=== PATIENT | female | born 1945 | race Two or more races ===

== ENCOUNTER 2018-05-24 20:05 | Inpatient (IN) | payer MEDICARE, OTHER ==
[~2018-05-24] VITALS: Ht 162.6 cm; Wt 97.1 kg
[2018-05-24 21:27] LABS: Alanine Aminotransferase 27 U/L (13-56); Albumin 3.6 g/dL (3.4-5.0); Anion Gap 3 (5-15); Aspartate Aminotransferase 23 U/L (15-37); Blood Urea Nitrogen 37 mg/dL (7-18); Calcium 8.3 mg/dL (8.5-10.1); Carbon Dioxide 31 mmol/L (21-32); Chloride 106 mmol/L (98-107); Glucose 145 mg/dL (74-106); Potassium 5.2 mmol/L (3.5-5.1); Sodium 140 mmol/L (136-145)
[2018-05-24 21:30] LABS: Basophils # (auto) 0 uL; Basophils % (auto) 0.4 % (0.0-2.0); Eosinophils # (auto) 0.1 uL; Eosinophils % (auto) 1.1 % (0.0-7.0); Hematocrit 44.1 % (36.0-46.0); Hemoglobin 14.7 g/dL (12.2-16.2); INR 1.41 (0.9-1.15); Lymphocytes # (auto) 2.1 uL; Lymphocytes % (auto) 42.3 % (10.0-50.0); Mean Corpuscular Hemoglobin 31.6 pg (28.0-32.0); Mean Corpuscular Hgb Conc. 33.4 g/dL (32.0-36.0); Mean Corpuscular Volume 94.5 fL (80.0-100.0); Monocytes # (auto) 0.6 uL; Monocytes % (auto) 11.5 % (0.0-12.0); Neutrophils # (auto) 2.2 uL; Neutrophils % (auto) 44.7 % (37.0-80.0); Nucleated Red Blood Cells % 0.2 %; Partial Thromboplastin Time 47.1 sec (23.78-33.04); Platelet Count (auto) 167 10^3/uL (140-450); Prothrombin Time 14.8 sec (9.27-12.13); Red Blood Cells 4.67 10^6/uL (4.0-5.20); Red Cell Distribution Width 15.1 % (11.8-14.3); White Blood Cell 4.8 10^3/uL (4.4-10.8)
[2018-05-24 21:32] LABS: Alkaline Phosphatase 48 U/L (45-117); BUN/Creatinine Ratio 24.8; Bilirubin, Total 0.3 mg/dL (0.2-1.0); GFR African American 44 mL/min; GFR Non-African American 36 mL/min; Total Protein 7.7 g/dL (6.4-8.2)
[2018-05-25] VITALS (8 sets, daily range): BP systolic 111–152; BP diastolic 65–76
[2018-05-25] MEDS ORDERED: FUROSEMIDE 20 MG/2 ML VIAL IV ONE (02:15)
[2018-05-25] MEDS ORDERED: ONDANSETRON HCL 4 MG/2 ML VIAL IV PRN (02:30)
[2018-05-25] MEDS ORDERED: NITROGLYCERIN 0.4 MG SL TAB SL PRN (02:30)
[2018-05-25] MEDS ORDERED: ACETAMINOPHEN 325 MG TAB PO PRN (02:30)
[2018-05-25] MEDS ORDERED: MORPHINE SULF INJ 2 MG/ML SYRINGE 1ML IV PRN (02:30)
[2018-05-25] MEDS ORDERED: DEXTROSE (50%) 50ML SYRG IV PRN (02:30)
--- NOTE | 2018-05-25 04:15 | NUR ---
Telemetry admit from ER [place] admitted to Telemetry unit after SBAR received. Patient oriented to Alisha Silverio, primary RN, unit, room, bed, and unit policies regarding patient care and visiting hours. Patient now on continuous telemetry monitoring, tele box # 19 and telemetry reading on arrival to unit is 62 . Patient placed on bedside oxygen, weighed by bedscale and encouraged to call if they need something. All questions and concerns addressed, patient oriented to herself, arousable. Note: pt.on bipap.
[2018-05-25 04:21] LABS: Urine Bacteria MANY /hpf (None Seen); Urine Blood 1+ /uL (Negative); Urine Hyaline Cast MOD /lpf (0 - 2); Urine Mucus FEW (None Seen); Urine Specific Gravity 1.016 (1.001-1.035); Urine WBC 1369 /hpf (0 - 5); Urine WBC Clumps PRESENT /hpf (None Seen)
[2018-05-25] MEDS ORDERED: CHOL20007 OR (04:36)
[2018-05-25] MEDS ORDERED: DABI75CA3 PO (04:36)
[2018-05-25] MEDS ORDERED: MULTTAB99 PO (04:36)
[2018-05-25] MEDS ORDERED: METO-158 PO (04:36)
[2018-05-25] MEDS ORDERED: IPRIH INH (04:36)
[2018-05-25] MEDS ORDERED: MOMLQ PO (04:36)
[2018-05-25] MEDS ORDERED: LEVO100T8 PO (04:36)
[2018-05-25] MEDS ORDERED: CELE100C82 PO (04:36)
[2018-05-25] MEDS ORDERED: SENN-58 PO (04:36)
[2018-05-25] MEDS ORDERED: FENO134C PO (04:36)
[2018-05-25] MEDS ORDERED: BUME1TAB PO (04:36)
[2018-05-25] MEDS ORDERED: INSUINJ48 SC ×2 (04:36)
[2018-05-25] MEDS ORDERED: ACET-1156 PO (04:36)
[2018-05-25] MEDS ORDERED: HYDR-4902 PO (04:36)
[2018-05-25] MEDS ORDERED: POTA20TA53 PO ×2 (04:36)
[2018-05-25] MEDS ORDERED: SIMV-8 PO (04:36)
[2018-05-25] MEDS: InsuLIN REG 1unit/0.01ml Soln (100units/ml) SC SCH ×3 (05:47→17:29)
[2018-05-25] MEDS: ACCU-CHEK COMFORT CURVE STRIP VI SCH ×3 (05:48→17:29)
[2018-05-25] MEDS: LEVOTHYROXINE SODIUM 100 MCG TAB PO SCH (06:00)
[2018-05-25] MEDS ORDERED: FUROSEMIDE 20 MG/2 ML VIAL IV SCH (06:00)
[2018-05-25] MEDS: IPRATROPIUM BROM 0.5 MG/2.5ML INH SOL NEB SCH ×5 (07:00→21:59)
--- NOTE | 2018-05-25 07:00 | NUR ---
PT. REMOVE MASK HERSELF THIS AM., REFUSING TO WEAR BIPAP. NOC SHIFT RN. STATES SHE PLACED PT. ON O2 AT 3LPM NC. ON ARRIVAL PT WAS SATURATING 99% ON 3LPM NC. 02 DECREASED TO 2LPM. PT. WAS ALERT SITTING UP IN A CHAIR WHILE CLEANER WINDOW CHANGED HER BEDDING. NO RESP. DISTRESS NOTED. AG OBTAINED AT THIS TIME.
--- NOTE | 2018-05-25 08:05 | NUR ---
PT SITTING IN CHAIR EATING BREAKFAST. NO S/S OF ACUTE DISTRESS NOTED. SON AT BEDSIDE. INSTRUCTED TO CALL FOR ASSISTANCE WHEN NEEDED. CALL LIGHT WITHIN EASY REACH, WILL CONTINUE CARE.
--- NOTE | 2018-05-25 08:55 | NUR ---
DR. TAVAREZ AT BEDSIDE. NEW ORDER CHANGE LASIX IV TO 40MG BID, PHYSICAL THERAPY. WILL CARRY OUT ORDER.
--- NOTE | 2018-05-25 09:35 | NUR ---
Pradaxa is not available, notify pharmacy.
[2018-05-25] MEDS: cefTRIAXone 1GM/50ML D5W 50 ML IV SCH (10:21)
[2018-05-25] MEDS: PANTOPRAZOLE 40 MG TAB PO SCH (10:21)
[2018-05-25] MEDS: METOPROLOL SUCCINATE XL 50 MG TAB PO SCH (10:22)
[2018-05-25] MEDS: ALBUTEROL SULF 2.5 MG/0.5ML(0.5%) NEB SOLN NEB PRN ×4 (10:51→21:59)
--- NOTE | 2018-05-25 11:03 | NUR ---
PLACED PT. BACK ON BIPAP WITH PRIOR SETTING OF 18/6,FIO2 35%. PT. STATES SHE WANTS TO SLEEP. DAUGHTER IN THE ROOM AT BEDSIDE, STATES HER MOM SEEMS A LITTLE OFF, NOT MAKING SENSE. PT. KEPT MASK ON MAYBE 5MIN AND REFUSED TO WEAR BIPAP ANYMORE. DAUGHTER EXPLAINED TO HER MOM THAT IT IS VERY IMPORTANT THAT SHE WEAR IT, BUT SHE STILL REFUSED.
[2018-05-25] MEDS: DABIGATRAN 75 MG CAP PO SCH ×2 (11:30→22:00)
--- NOTE | 2018-05-25 15:46 | NUR ---
Pt is an alert but lethargic /confused female. Pt has been residing at [facility] prior to hospitalization and will be returning post discharge. Pt has a son and daughter, Nery Seals, that is supportive and involved with pt. Pt will be transported back to [facility] when discharged with transportation arrangements by facility. Addendum: 05/25/18 at 1549 by RONNY FOX Amended: Links added.
--- NOTE | 2018-05-25 17:10 | NUR ---
DR. CARREON AT BEDSIDE FOR CARDIOLOGY CONSULT.
--- NOTE | 2018-05-25 17:54 | NUR ---
PT C/O BACK PAIN. DR. TAVAREZ NOTIFIED, NEW ORDER NORCO 5-325 MG PO Q 6H PRN. ORDER READ BACK AND VERIFIED WILL CARRY OUT ORDER.
[2018-05-25] MEDS: FUROSEMIDE 20 MG/2 ML VIAL IV SCH (18:27)
--- NOTE | 2018-05-25 19:10 | NUR ---
Opening Shift Note Assumed care of patient from day shift RN Van. Patient is A/O to self with no S/S of distress/SOB or pain. Instructed on POC and to call for assist PRN, will continue to monitor for changes Q1hr and PRN.
--- NOTE | 2018-05-25 19:20 | NUR ---
CARE ENDORSED TO VIRIDIANA JOSEPH.
--- NOTE | 2018-05-25 20:40 | NUR ---
PATIENT PULLED OUT IV
[2018-05-25] MEDS: TEMAZEPAM 15 MG CAP PO PRN (22:36)
[2018-05-26] MEDS: IPRATROPIUM BROM 0.5 MG/2.5ML INH SOL NEB SCH ×7 (02:00→22:00)
--- NOTE | 2018-05-26 03:05 | NUR ---
IV insertion IV ACCESS OBTAINED via clean sterile technique by inserting 22 gauge catheter at after 2 attempt(s). IV secured properly. No trauma to site. Patient tolerated well.
[2018-05-26] MEDS: ALBUTEROL SULF 2.5 MG/0.5ML(0.5%) NEB SOLN NEB PRN ×4 (03:41→14:21)
[2018-05-26 05:00] VITALS: BP 145/68
[2018-05-26] MEDS: InsuLIN REG 1unit/0.01ml Soln (100units/ml) SC SCH ×4 (05:23→18:12)
[2018-05-26] MEDS: ACCU-CHEK COMFORT CURVE STRIP VI SCH ×4 (05:23→18:12)
[2018-05-26] MEDS: FUROSEMIDE 20 MG/2 ML VIAL IV SCH ×2 (06:49→18:11)
[2018-05-26] MEDS: LEVOTHYROXINE SODIUM 100 MCG TAB PO SCH (06:49)
[2018-05-26 07:03] LABS: Basophils # (auto) 0 uL; Basophils % (auto) 0.5 % (0.0-2.0); Eosinophils # (auto) 0 uL; Eosinophils % (auto) 0.9 % (0.0-7.0); Hematocrit 40.7 % (36.0-46.0); Hemoglobin 13.3 g/dL (12.2-16.2); Lymphocytes # (auto) 1.3 uL; Lymphocytes % (auto) 32.2 % (10.0-50.0); Mean Corpuscular Hgb Conc. 32.8 g/dL (32.0-36.0); Mean Corpuscular Volume 94.4 fL (80.0-100.0); Monocytes # (auto) 0.4 uL; Monocytes % (auto) 10.3 % (0.0-12.0); Neutrophils # (auto) 2.3 uL; Neutrophils % (auto) 56.1 % (37.0-80.0); Nucleated Red Blood Cells % 0.1 %; Platelet Count (auto) 166 10^3/uL (140-450); Red Blood Cells 4.31 10^6/uL (4.0-5.20); Red Cell Distribution Width 15.6 % (11.8-14.3); White Blood Cell 4.2 10^3/uL (4.4-10.8)
--- NOTE | 2018-05-26 07:26 | NUR ---
CLOSING NOTE CARE TRANSFERRED TO DAY SHIFT OPAL BRUNNER
[2018-05-26 07:29] LABS: BUN/Creatinine Ratio 27.5; Calcium 8.6 mg/dL (8.5-10.1); Potassium 4.1 mmol/L (3.5-5.1)
[2018-05-26 09:00] VITALS: BP 146/69
--- NOTE | 2018-05-26 09:00 | NUR ---
IV Removal/ Insertion IV to right forearm DC'd with clean sterile technique, catheter fully intact. Pressure dressing applied to site. Patient tolerated well. IV insertion IV access obtained, via clean sterile technique by inserting 22 gauge catheter at the left forearm after 1 attempt. IV secured properly. No trauma to site. Patient tolerated well.
--- NOTE | 2018-05-26 09:06 | NUR ---
FAMILY CALLED P[employer]WORD VERIFIED, UPDATED ON PATIENT STATUS. ALL QUESTIONS AND CONCERNS ADDRESSED.
--- NOTE | 2018-05-26 09:41 | NUR ---
PATIENT PLACED ON CONTACT PRECAUTIONS PER MICROBIOLOGY, PATIENT POSITIVE FOR MRSA. WILL CONTINUE DROPLET PRECAUTIONS. WILL CONTINUE CARE.
[2018-05-26] MEDS: DABIGATRAN 75 MG CAP PO SCH ×2 (09:46→21:24)
[2018-05-26] MEDS: cefTRIAXone 1GM/50ML D5W 50 ML IV SCH (09:46)
[2018-05-26] MEDS: PANTOPRAZOLE 40 MG TAB PO SCH (09:47)
[2018-05-26] MEDS: METOPROLOL SUCCINATE XL 50 MG TAB PO SCH (09:47)
--- NOTE | 2018-05-26 11:00 | NUR ---
PLACE PT ON BIPAP SETTINGS MENTIONED ABOVE, PT HAS INCREASED WOB WITHOUT POST MED NEB TREATMENT IMPROVEMENT. PT WEARING MEDIUM SIZE MASK AND ADJUSTED FOR COMFORT AND MINIMAL LEAK NOSE CUSION IN PLACE. NO SKIN BREAKDOWN NOTED NO REDNESS NOTED. DAUGHTER AT BEDSIDE. BS AUDIBLE EXP WHEEZES. ALARMS ON BIPAP ON AND AUDIBLE. BIPAP PLUGGED IN RED OUTLET. PULSE OXIMETER AT BEDSIDE. WILL CONTINUE TO MONITOR PT.
--- NOTE | 2018-05-26 11:03 | NUR ---
PATIENT DAUGHTER AT BEDSIDE. REFUSING TO WEAR PPE INDICATED. EDUCATED PATIENT FAMILY ON IMPORTANCE OF COMPLIANCE WITH PPE TO STOP THE SPREAD OF INFECTION. DAUGHTER VERBALIZED UNDERSTANDING BUT REFUSING TO WEAR GOWN AT THIS TIME. DAUGHTER STATING HER FATHER WAS POSITIVE FOR MRSA LAST YEAR SO SHE KNOWS ABOUT THE INFECTION. FAMILY REQUESTING TO SPEAK WITH CHARGE NURSE, CHARGE NURSE MADE AWARE. WILL CONTINUE CARE.
[2018-05-26] MEDS: HYDROcodone-ACET 5/325MG TAB PO PRN (11:19)
--- NOTE | 2018-05-26 12:03 | NUR ---
Patient removing Bipap mask. Educated patient on importance of wearing Bipap. Patient unable to comprehend. Patient placed back on Bipap at this time. Family member at bedside. Will continue to monitor.
--- NOTE | 2018-05-26 12:07 | NUR ---
Paged MD Minaya. Patient family requesting medication due to patient being anxious. No new orders. Will continue to monitor.
--- NOTE | 2018-05-26 12:31 | NUR ---
Pt reports no c/o pain and or discomfort. Pt worked on bilat LE strengthening at the edge of the bed and was also able to complete x 10 reps of T Y and I exercises. Pt was able to stand up at the edge of the bed using a FWW for support and was able to take 5 side steps towards her R side so she could get higher up in bed. Pt is wheezing and has a difficult time breathing. Addendum: 05/26/18 at 1234 by Juany Fontaine PT Amended: Links added.
[2018-05-26 13:00] VITALS: BP 152/70
--- NOTE | 2018-05-26 13:15 | NUR ---
PT REMOVED FROM BIPAP AT THIS TIME FOR LUNCH. DAUGHTER AT BEDSIDE. PLACED PT ON 2L NC WITH SPO2 93%, HR 89. NO DISTRESS NOTED. WILL CONTINUE TO MONITOR PT.
--- NOTE | 2018-05-26 16:00 | NUR ---
PATIENT ROUNDS- NO S/S OF DISTRESS FAMILY AT BEDSIDE. PATIENT RESTING COMFORTABLY. BED LOW LOCK POSITION WITH CALL LIGHT IN REACH, BED ALARM ON. RESPIRATIONS EVEN AND UNLABORED. NO S/S OF DISTRESS, WILL CONTINUE CARE.
[2018-05-26 17:00] VITALS: BP 117/53
[2018-05-26] MEDS ORDERED: ALBUTEROL SULF 2.5 MG/0.5ML(0.5%) NEB SOLN NEB PRN (18:00)
[2018-05-26] MEDS ORDERED: AZITHROMYCIN 500MG/ 250ML 250 ML IV ONE (18:00)
[2018-05-26] MEDS ORDERED: methylPREDNISolone SOD SUCC 125 MG/2 ML VL IV ONE (18:00)
--- NOTE | 2018-05-26 18:08 | NUR ---
MD TAVAREZ AT BEDSIDE FAMILY QUESTIONS AND CONCERNS ADDRESSED. NEW ORDERS GIVEN. SEE ORDERS. CONTINUE CARE. Addendum: 05/26/18 at 1811 by KANNAN CHI RN DECLINED PATIENT FAMILY REQUEST FOR ANXIETY MEDICATION. PATIENT FAMILY VERBALIZED UNDERSTANDING.
[2018-05-26] MEDS: ALBUTEROL SULF 2.5 MG/0.5ML(0.5%) NEB SOLN NEB SCH (18:33)
--- NOTE | 2018-05-26 18:33 | NUR ---
Respiratory note: PT REFUSED MED NEB TX AT THIS TIME. PT PRESENTING NO RESPIRATORY DISTRESS. SITTER AT BEDSIDE. HR 83, SPO2 95% ON 2L NC, RR 16, BS CLEAR/DIMINISHED. WILL CONTINUE TO MONITOR.
--- NOTE | 2018-05-26 19:45 | NUR ---
DR. FRIAS At bedside MD informed for Pt o2 levels to be between 88-92%, No sedatives to be given, CXR and ABG to be done in AM, Will continue to monitor pt.
--- NOTE | 2018-05-26 19:50 | NUR ---
INFORMED DR. FRIAS pt family would like to be contacted as per family request will continue to monitor pt.
--- NOTE | 2018-05-26 19:59 | NUR ---
PT ROUNDS Informed sitter at bedside for safety to please inform me if O2 goes below 87% or above 92%. will continue to monitor pt,
[2018-05-26] MEDS: methylPREDNISolone SOD SUCC 125 MG/2 ML VL IV SCH (21:25)
[2018-05-26] MEDS: OSELTAMIVIR 30 MG CAP PO SCH (21:25)
[2018-05-26 22:00] VITALS: BP 141/66
--- NOTE | 2018-05-26 22:15 | NUR ---
Respiratory note: PT REFUSED MED NEB TX AT THIS TIME AND REFUSED BIPAP FOR NOC. OPAL GIPSON SPOKE TO PT IN ICEL[place]IC AND PT STILL REFUSED MED NEB TX AND BIPAP. PT PRESENTING NO RESPIRATORY DISTRESS AT THIS TIME. PT REMAINS ON 1.5L NC, SITTER AT BEDSIDE. HR 60 SPO2 97% ON 1.5L NC, RR 16. WILL CONTINUE TO MONITOR.
--- NOTE | 2018-05-26 22:17 | NUR ---
RT AT BEDSIDE Spoke with PT, pt refused breathing tx and bipap, informed pt importance of receiving breathing tx and use of bipap. PT still refused, will continue to monitor pt.
[2018-05-27] MEDS: IPRATROPIUM BROM 0.5 MG/2.5ML INH SOL NEB SCH ×4 (02:17→19:22)
--- NOTE | 2018-05-27 04:30 | NUR ---
Respiratory note: PT PLACED ON BIPAP POST ABG RESULTS. PT FITTED WITH SIZE MEDIUM MASK. BS COARSE, PT NOT TOLERATING WELL, PULLING AT MASK, STATES SHE WANTS TO TAKE IT OFF, RN CALLED TO BEDSIDE TO TRANSLATE AND EXPLAIN TO PT WHY SHE NEEDS TO WEAR MASK, PT REFUSED AND WANTS MASK OFF AT THIS TIME. PT PLACED BACK ON NASAL CANNULA. NO RESPIRATORY DISTRESS NOTED, RN TO NOTIFY DR. TAVAREZ ABG RESULTS AND PT NOT BEING COMPLIANT WITH TREATMENT. WILL CONTINUE TO MONITOR.
[2018-05-27 05:00] VITALS: BP 128/59
--- NOTE | 2018-05-27 06:00 | NUR ---
INFORMED DR. MINAYA ABG Informed Dr. Minaya in regards to pt's ABG results, will continue to monitor pt.
[2018-05-27] MEDS: ACCU-CHEK COMFORT CURVE STRIP VI SCH ×5 (06:04→23:25)
[2018-05-27] MEDS: methylPREDNISolone SOD SUCC 125 MG/2 ML VL IV SCH ×3 (06:17→21:25)
[2018-05-27] MEDS: InsuLIN REG 1unit/0.01ml Soln (100units/ml) SC SCH ×5 (06:18→23:26)
[2018-05-27] MEDS: FUROSEMIDE 20 MG/2 ML VIAL IV SCH ×2 (06:18→18:20)
[2018-05-27] MEDS: LEVOTHYROXINE SODIUM 100 MCG TAB PO SCH (06:18)
[2018-05-27] MEDS: ALBUTEROL SULF 2.5 MG/0.5ML(0.5%) NEB SOLN NEB SCH ×3 (06:31→19:22)
--- NOTE | 2018-05-27 06:42 | NUR ---
Respiratory note: PT REFUSED MEDNEB. PT IS ON 0.5L NASAL CANNULA AT 94%. BREATH SOUNDS WERE DIMINISHED BILATERALLY. CARDIAC RATE-58 AND RESP RATE-18. PT IN NO DISTRESS AT THIS TIME.
--- NOTE | 2018-05-27 08:00 | NUR ---
PATIENT PULLED OUT IV ROUNDED ON PATIENT. FOUND PATIENT HOLDING IV CATHETER. CATHETER INTACT. PRESSURE DRESSING APPLIED. NO S/S OF DISTRESS.
--- NOTE | 2018-05-27 08:10 | NUR ---
IV insertion IV access obtained, via clean sterile technique by inserting 22 gauge catheter at right forearm after 3 attempts. IV secured properly. No trauma to site. Patient tolerated well.
[2018-05-27 09:00] VITALS: BP 154/55
[2018-05-27] MEDS: cefTRIAXone 1GM/50ML D5W 50 ML IV SCH (09:28)
[2018-05-27] MEDS: DABIGATRAN 75 MG CAP PO SCH ×2 (09:29→21:25)
[2018-05-27] MEDS: OSELTAMIVIR 30 MG CAP PO SCH ×2 (09:29→21:25)
[2018-05-27] MEDS: PANTOPRAZOLE 40 MG TAB PO SCH (09:29)
[2018-05-27] MEDS: METOPROLOL SUCCINATE XL 50 MG TAB PO SCH (09:31)
[2018-05-27] MEDS: AZITHROMYCIN 500MG/ 250ML 250 ML IV SCH (10:14)
--- NOTE | 2018-05-27 10:45 | NUR ---
FAMILY AT BEDSIDE. ALL QUESTIONS AND CONCERNS ADDRESSED.
[2018-05-27 13:00] VITALS: BP 123/58
[2018-05-27 17:00] VITALS: BP 129/52
--- NOTE | 2018-05-27 19:10 | NUR ---
CLOSING NOTE ENDORSED CARE TO FOOD AND NUTRITION PROFESSOR RN. BED IN LOW LOCK POSITION, CALL LIGHT IN REACH. BED ALARM ON. SITTER AT BEDSIDE. NO S/S OF DISTRESS.
--- NOTE | 2018-05-27 19:15 | NUR ---
Opening Shift Note Assumed care of patient, awake and alert. No S/S of distress/SOB or pain. Sitter at bedside for safety, Instructed on POC and to call for assist PRN, will continue to monitor for changes Q1hr and PRN. Bed locked and in lowest position, HOB elevated, call light within reach, will continue to monitor pt.
[2018-05-28] MEDS: ALBUTEROL SULF 2.5 MG/0.5ML(0.5%) NEB SOLN NEB SCH ×4 (01:44→18:58)
[2018-05-28] MEDS: IPRATROPIUM BROM 0.5 MG/2.5ML INH SOL NEB SCH ×4 (01:44→18:58)
[2018-05-28 05:00] VITALS: BP 145/67
[2018-05-28] MEDS: ACCU-CHEK COMFORT CURVE STRIP VI SCH ×4 (06:00→23:57)
[2018-05-28] MEDS: methylPREDNISolone SOD SUCC 125 MG/2 ML VL IV SCH ×3 (06:33→21:31)
[2018-05-28] MEDS: cefTRIAXone 1GM/50ML D5W 50 ML IV SCH (06:33)
[2018-05-28] MEDS: FUROSEMIDE 20 MG/2 ML VIAL IV SCH ×2 (06:34→17:56)
[2018-05-28] MEDS: LEVOTHYROXINE SODIUM 100 MCG TAB PO SCH (06:34)
[2018-05-28] MEDS: InsuLIN REG 1unit/0.01ml Soln (100units/ml) SC SCH ×4 (06:42→23:56)
--- NOTE | 2018-05-28 07:25 | NUR ---
OPENING SHIFT NOTE ASSUMED CARE OF PATIENT FROM SUPERVISOR BOARDING RN AISLINN. PATIENT IS AWAKE AND ALERT X1 (NAME). WILL CONTINUE TO REORIENT PATIENT TO TIME, PLACE, AND SITUATION THROUGHOUT SHIFT. INSTRUCTED PATIENT ON POC, PATIENT VERBALIZED UNDERSTANDING. BED IS IN LOWEST POSITION WITH PADDED SIDE RAILS RAISED X2, BED WHEELS LOCKED, GU IS HANGING BELOW BLADDER AND IS DRAINING YELLOW URINE, SEIZURE PRECAUTIONS IN PLACE, SITTER AT BEDSIDE, AND CALL LIGHT IS WITHIN REACH. WILL CONTINUE TO MONITOR.
[2018-05-28 07:40] VITALS: BP 145/67
--- NOTE | 2018-05-28 07:42 | NUR ---
CLOSING NOTE Pt resting no s/sx's of distress or sob, noted. Sitter at bedside for safety
--- NOTE | 2018-05-28 08:00 | NUR ---
MD SILVEIRA AT BEDSIDE UPDATED MD ON PATIENT'S STATUS, MD IS AWARE AND WILL PUT IN ORDERS FOR PHYSICAL THERAPY AND EEG. WILL CONTINUE TO MONITOR
--- NOTE | 2018-05-28 08:13 | NUR ---
RT AT BEDSIDE. PLACING PATIENT ON BIPAP
[2018-05-28 08:30] LABS: Folate (Folic Acid) 7.35 ng/mL (5.38-24)
[2018-05-28 09:00] VITALS: BP 137/68
--- NOTE | 2018-05-28 09:44 | NUR ---
Respiratory note: PT FOUND ON 2LPM SATS-92%. PT JUST FINISHED BREAKFAST AND WAS TAKEN OFF BIPAP FROM NURSE. PT DOES NOT WANT TO WEAR BIPAP AT THIS TIME. RN NOTIFIED. RN STATED THAT DR. TANNER WANTS PT TO WEAR BIPAP WHILE SLEEPING AND AT NIGHT.
--- NOTE | 2018-05-28 10:00 | NUR ---
PT PLACED PATIENT IN CHAIR. PATIENT HAS NO S/S OF DISTRESS/SOB OR PAIN AT THIS TIME.
[2018-05-28] MEDS: DABIGATRAN 75 MG CAP PO SCH ×2 (11:01→21:31)
[2018-05-28] MEDS: AZITHROMYCIN 500MG/ 250ML 250 ML IV SCH (11:01)
[2018-05-28] MEDS: OSELTAMIVIR 30 MG CAP PO SCH ×2 (11:01→21:31)
[2018-05-28] MEDS: PANTOPRAZOLE 40 MG TAB PO SCH (11:01)
[2018-05-28] MEDS: METOPROLOL SUCCINATE XL 50 MG TAB PO SCH (11:05)
--- NOTE | 2018-05-28 12:58 | NUR ---
NUTRITION ASSESSMENT NOTES Please refer to link notes of nutrition screen form filed under the intervention section of the plan of care for further details. Est. Needs: 1550 kcal to 2000 kcal (15-20 kcal/kgBW), 55 gms to 66 gms pro (1.0-1.2 gms/kgIBW: 55 kg). Will continue to monitor pertinent labs and reassess nutrient need prn Thank you. Addendum: 05/28/18 at [address] Amended: Links added.
[2018-05-28 13:00] VITALS: BP 155/71
--- NOTE | 2018-05-28 14:20 | NUR ---
FAMILY AT BEDSIDE.
--- NOTE | 2018-05-28 15:20 | NUR ---
EEG COMPLETED AT BEDSIDE. OPAL LARSEN.
--- NOTE | 2018-05-28 15:50 | NUR ---
IM: Pt's daughter signed IM. Copy of IM placed in chart
--- NOTE | 2018-05-28 19:14 | NUR ---
CLOSING SHIFT NOTE ENDORSED CARE TO CANNONEER OPAL LING. PATIENT HAS NO S/S OF DISTRESS/SOB OR PAIN AT THIS TIME.
--- NOTE | 2018-05-28 19:20 | NUR ---
First Contact Received report from OPAL [place] Pt admitted for SOB x1 week with productive cough and general weakness. Per family, pt is also altered from baseline. Neuro: A&Ox1 - pt responds to name but unable to answer questions. Speech garbled, delayed. Does not maintain eye contact but tracks with eyes while moving around room. Affect appropriate, calm and cooperative. Bedrest. PERRLA. Cardiac: Heart sounds regular rate and rhythm. On cardiac monitoring. AMBULANCE DRIVER >3 in nail beds. Resp: Labored with accessory muscle breathing. Currently on 3L O2 via NC. Breath sounds crackles in bilateral upper lobes, diminished. Wheezes observed in right lower lobe. Diminished breath sounds on left lower lobe. Skin: Intact. Blanchable redness to sacrum with q2h turns and PRN. Bilateral upper and lower extremity edema; 2+ pitting in BLE, nonpitting BUE. 22g IV to right forearm, saline lock; asymptomatic, intact, patent. GI: Bowel sounds x4 quadrants. Abdomen large, soft, and nontender. Gas present. Bedpan. : Mathis catheter draining to gravity. Placed 05.24.18 in ER. Pt on contact ISO for positive MRSA in nares and on droplet precautions for positive Flu B Will page Dr Minaya regarding breathing patterns and possible aspiration FORMULA TECHNICIAN at bedside Will continue to monitor
--- NOTE | 2018-05-28 19:36 | NUR ---
Difficulty breathing Pt is showing labored breathing with accessory muscles being used. Heavy crackles with diminished breath sounds observed Telephone Dr Minaya to inform and for possible orders Awaiting call back
--- NOTE | 2018-05-28 19:45 | NUR ---
Telephone Orders Received telephone orders from Dr Minaya for STAT CXR for possible aspiration Will place order
[2018-05-28 21:30] VITALS: BP 149/72
[2018-05-29 04:30] VITALS: BP 141/68
[2018-05-29] MEDS: ACCU-CHEK COMFORT CURVE STRIP VI SCH ×3 (06:00→17:40)
[2018-05-29] MEDS: methylPREDNISolone SOD SUCC 125 MG/2 ML VL IV SCH ×3 (06:00→22:34)
[2018-05-29] MEDS: InsuLIN REG 1unit/0.01ml Soln (100units/ml) SC SCH ×3 (06:00→17:40)
[2018-05-29] MEDS: LEVOTHYROXINE SODIUM 100 MCG TAB PO SCH (06:01)
[2018-05-29] MEDS: FUROSEMIDE 20 MG/2 ML VIAL IV SCH ×2 (06:01→17:38)
[2018-05-29] MEDS: ALBUTEROL SULF 2.5 MG/0.5ML(0.5%) NEB SOLN NEB SCH ×3 (07:01→18:40)
[2018-05-29] MEDS: IPRATROPIUM BROM 0.5 MG/2.5ML INH SOL NEB SCH ×3 (07:01→18:40)
--- NOTE | 2018-05-29 07:18 | NUR ---
Report Given Care endorsed to OPAL Lassiter All questions answered
[2018-05-29 09:00] VITALS: BP 134/60
--- NOTE | 2018-05-29 10:00 | NUR ---
Opening Shift Note Assumed care of patient, awake and alert. No S/S of distress/SOB or pain. Instructed on POC and to call for assist PRN, will continue to monitor for changes Q1hr and PRN.
[2018-05-29] MEDS: cefTRIAXone 1GM/50ML D5W 50 ML IV SCH (10:04)
[2018-05-29] MEDS: AZITHROMYCIN 500MG/ 250ML 250 ML IV SCH (10:05)
[2018-05-29] MEDS: PANTOPRAZOLE 40 MG TAB PO SCH (10:05)
[2018-05-29] MEDS: METOPROLOL SUCCINATE XL 50 MG TAB PO SCH (10:05)
[2018-05-29] MEDS: DABIGATRAN 75 MG CAP PO SCH ×2 (10:05→22:42)
[2018-05-29] MEDS: OSELTAMIVIR 30 MG CAP PO SCH ×2 (10:06→22:42)
--- NOTE | 2018-05-29 10:47 | NUR ---
IV insertion IV access obtained, via clean sterile technique by inserting 22 gauge catheter at after attempt(s). IV secured properly. No trauma to site. Patient tolerated well.
--- NOTE | 2018-05-29 12:00 | NUR ---
RT paged regarding BIPAP, awaiting to call back.
--- NOTE | 2018-05-29 12:08 | NUR ---
Spoke to RT regarding CPAP/BIPAP, stated patient does not need it and patient refused, will notify family.
[2018-05-29 13:00] VITALS: BP 138/67
--- NOTE | 2018-05-29 17:45 | NUR ---
Patient's daughter discussed with RT at bedside.
--- NOTE | 2018-05-29 19:30 | NUR ---
Opening Shift Note Assumed care of patient, awake and alert but speaking garbled words. Oriented x3. No S/S of distress/SOB or pain. Sitter at bedside. Instructed on POC and to call for assist PRN, will continue to monitor for changes PRN. Bed low with HOB in semi-Schafer's position. Call light at side of pt.
[2018-05-29 22:00] VITALS: BP 145/90
[2018-05-30] MEDS: InsuLIN REG 1unit/0.01ml Soln (100units/ml) SC SCH ×4 (01:11→17:52)
[2018-05-30 05:00] VITALS: BP 138/79
--- NOTE | 2018-05-30 06:15 | NUR ---
Pt able to swallow small tab with H2O only. HS meds crushed and mixed with apple sauce and taken easily. Pt much more alert and cooperative. Thoughts still come slowly at time.s
[2018-05-30] MEDS: IPRATROPIUM BROM 0.5 MG/2.5ML INH SOL NEB SCH ×3 (06:45→19:56)
[2018-05-30] MEDS: ALBUTEROL SULF 2.5 MG/0.5ML(0.5%) NEB SOLN NEB SCH ×3 (06:45→19:56)
--- NOTE | 2018-05-30 06:45 | NUR ---
Respiratory note: TOOK OFF BIPAP AND PLACED ON 2L NC. HR 92, RR 18, SPO2 98%.
[2018-05-30] MEDS: FUROSEMIDE 20 MG/2 ML VIAL IV SCH ×2 (07:10→17:16)
[2018-05-30] MEDS: methylPREDNISolone SOD SUCC 125 MG/2 ML VL IV SCH ×3 (07:11→20:39)
[2018-05-30] MEDS: LEVOTHYROXINE SODIUM 100 MCG TAB PO SCH (07:13)
[2018-05-30] MEDS: ACCU-CHEK COMFORT CURVE STRIP VI SCH ×4 (08:03→17:51)
[2018-05-30] MEDS: cefTRIAXone 1GM/50ML D5W 50 ML IV SCH (09:25)
[2018-05-30] MEDS: OSELTAMIVIR 30 MG CAP PO SCH ×2 (09:26→20:38)
[2018-05-30] MEDS: AZITHROMYCIN 500MG/ 250ML 250 ML IV SCH (09:26)
[2018-05-30] MEDS: PANTOPRAZOLE 40 MG TAB PO SCH (09:26)
[2018-05-30] MEDS: DABIGATRAN 75 MG CAP PO SCH ×2 (09:26→20:38)
[2018-05-30 09:27] VITALS: BP 146/73
[2018-05-30] MEDS: METOPROLOL SUCCINATE XL 50 MG TAB PO SCH (09:27)
--- NOTE | 2018-05-30 11:01 | NUR ---
Patient has Reddened Face Patient's face is red. O2 saturation 95%, temperature 98.6. Patient states they are able to breathe ok with no difficulty. Patient has no swelling in throat. Charge nurse aware. Will continue to monitor.
--- NOTE | 2018-05-30 11:05 | NUR ---
Paged Dr Minaya Paged Dr Minaya in regards to patient's reddened face. New order in place for Benadryl 25mg Q6 PO PRN. Order read back and verified.
[2018-05-30] MEDS ORDERED: diphenhdrAMINE HCL 25 MG CAP PO PRN (11:15)
[2018-05-30 12:59] VITALS: BP 139/68
[2018-05-30 16:53] VITALS: BP 151/54
[2018-05-30 18:36] LABS: Basophils # (auto) 0 uL; Eosinophils # (auto) 0 uL; Hematocrit 45.4 % (36.0-46.0); Hemoglobin 14.8 g/dL (12.2-16.2); Lymphocytes # (auto) 0.4 uL; Lymphocytes % (auto) 8.7 % (10.0-50.0); Mean Corpuscular Hemoglobin 30.4 pg (28.0-32.0); Mean Corpuscular Hgb Conc. 32.7 g/dL (32.0-36.0); Monocytes # (auto) 0.2 uL; Monocytes % (auto) 4.6 % (0.0-12.0); Neutrophils # (auto) 3.7 uL; Neutrophils % (auto) 86.7 % (37.0-80.0); Nucleated Red Blood Cells % 0.1 %; Platelet Count (auto) 197 10^3/uL (140-450); Red Blood Cells 4.88 10^6/uL (4.0-5.20); Red Cell Distribution Width 14.5 % (11.8-14.3); White Blood Cell 4.3 10^3/uL (4.4-10.8)
[2018-05-30 18:40] LABS: BUN/Creatinine Ratio 36.6; Calcium 8.7 mg/dL (8.5-10.1); Potassium 3.5 mmol/L (3.5-5.1)
--- NOTE | 2018-05-30 20:15 | NUR ---
Call received from Juhi Mathews in lab that pt's CO2 is 48. Dr. Andino notified. Pt refusing bipap though RT notified and responded to room with this RN. Pt alert and oriented.
[2018-05-30 22:00] VITALS: BP 151/70
[2018-05-31 05:00] VITALS: BP 156/69
[2018-05-31] MEDS: LEVOTHYROXINE SODIUM 100 MCG TAB PO SCH (07:00)
[2018-05-31] MEDS: ALBUTEROL SULF 2.5 MG/0.5ML(0.5%) NEB SOLN NEB SCH ×3 (07:20→20:08)
[2018-05-31] MEDS: IPRATROPIUM BROM 0.5 MG/2.5ML INH SOL NEB SCH ×3 (07:20→20:08)
[2018-05-31 09:54] VITALS: BP 136/66
[2018-05-31 09:56] LABS: Basophils # (auto) 0 uL; Basophils % (auto) 0.2 % (0.0-2.0); Eosinophils # (auto) 0 uL; Hematocrit 48.1 % (36.0-46.0); Hemoglobin 15.9 g/dL (12.2-16.2); Lymphocytes # (auto) 0.3 uL; Lymphocytes % (auto) 5.3 % (10.0-50.0); Mean Corpuscular Hemoglobin 30.8 pg (28.0-32.0); Mean Corpuscular Hgb Conc. 33.1 g/dL (32.0-36.0); Mean Corpuscular Volume 93.1 fL (80.0-100.0); Monocytes # (auto) 0.2 uL; Monocytes % (auto) 4.1 % (0.0-12.0); Neutrophils # (auto) 4.5 uL; Neutrophils % (auto) 90.4 % (37.0-80.0); Platelet Count (auto) 216 10^3/uL (140-450); Red Blood Cells 5.16 10^6/uL (4.0-5.20); Red Cell Distribution Width 14.5 % (11.8-14.3)
[2018-05-31 10:07] VITALS: BP 136/66
[2018-05-31 10:08] LABS: Calcium 8.9 mg/dL (8.5-10.1); Potassium 3.5 mmol/L (3.5-5.1)
[2018-05-31 10:10] LABS: BUN/Creatinine Ratio 32.6
[2018-05-31] MEDS: DABIGATRAN 75 MG CAP PO SCH ×2 (10:28→22:00)
[2018-05-31] MEDS: OSELTAMIVIR 30 MG CAP PO SCH (10:28)
[2018-05-31] MEDS: AZITHROMYCIN 500MG/ 250ML 250 ML IV SCH (10:28)
[2018-05-31] MEDS: METOPROLOL SUCCINATE XL 50 MG TAB PO SCH (10:29)
[2018-05-31] MEDS: PANTOPRAZOLE 40 MG TAB PO SCH (10:29)
[2018-05-31] MEDS: ACCU-CHEK COMFORT CURVE STRIP VI SCH ×4 (12:00→19:02)
[2018-05-31 13:31] VITALS: BP 140/64
--- NOTE | 2018-05-31 13:58 | NUR ---
Nutrition Follow-up Notes Wt.: 100.7 kg as of yesterday. Pt's in isolation room, on oxygen via nasal cannula, confused, no immediate family member at bedside except for sitter when rounded this morning. Pt's currently on Consistent Carb,Cardiac: 2 gms Na, Low Chol, Low Fat diet with fair PO intake aeb 60% ave. consumed meals in last 2.5 days. Est. Needs: 1550 kcal to 2000 kcal (15-20 kcal/kgBW), 55 gms to 66 gms pro (1.0-1.2 gms/kgIBW: 55 kg). Will continue to monitor pertinent labs and reassess nutrient need prn Labs: Gluc 341 H, Cl 88 L, BUN 44 H, Cr 1.35 H Skin: Donato scale 15, mod risk, pt's left right legs hyperpigmentation and edema per abrasive mixer. GI: Pt's no bowel activity since 05/24/18 per abrasive mixer. PES: Altered nutrition related lab values r/t current/chronic medical condition aeb hyperglycemia and elev. Vit B12, renal labs. Obesity r/t food intake more than body requirement aeb 187% IBW, BMI 38.8 kg/m2 and increased body adiposity Will continue to monitor PO intake, skin status, pertinent labs and weight trend. F/u in 3 to 5 days. Rec.: 1.) Continue close supervision and feeding assistance during meals. 2.) Consider stool softener/laxatives prn for regular bowel elimination if medically appropriate. 3.) If pt's PO intake remains inadequate (<75%), consider Ensure Enlive 1 carton BID. 4.) Refer to CDE/RD for further nutrition education and weight monitoring upon discharged. 5.) Continue current plan of care.
[2018-05-31] MEDS: methylPREDNISolone SOD SUCC 125 MG/2 ML VL IV SCH ×2 (14:00→21:59)
[2018-05-31] MEDS: InsuLIN REG 1unit/0.01ml Soln (100units/ml) SC SCH ×2 (14:10→18:00)
[2018-05-31 17:37] VITALS: BP 153/71
[2018-05-31] MEDS: FUROSEMIDE 20 MG/2 ML VIAL IV SCH (18:00)
[2018-05-31] MEDS: cefTRIAXone 1GM/50ML D5W 50 ML IV SCH (18:15)
--- NOTE | 2018-05-31 18:29 | NUR ---
Dr Andino at Bedside Dr Andino at patient bedside along with family, daughter and son in law.
--- NOTE | 2018-05-31 19:55 | NUR ---
Pt just pulled out her IV and is very combative and yelling and screaming. IV cath out with cath tip intact, site is bleeding and drsg applied with coban and pt pulled off drsg, so mittens applied bilat hands, gown and linens changed at this time. Sitter at bedside. Bed is low, wheels are locked, and call light is with in reach.
--- NOTE | 2018-05-31 20:08 | NUR ---
Respiratory note: ARRIVED FOR PT'S SCHEDULED MED NEB TX, RN STATED IT WAS NOT A GOOD TIME FOR BREATHING TREATMENT, PT WAS COMBATIVE ACCORDING TO RN. NO RESPIRATORY DISTRESS NOTED. WILL RETURN FOR NEXT SCHEDULED MED NEB TX.
[2018-05-31] MEDS: TEMAZEPAM 15 MG CAP PO PRN (20:14)
[2018-05-31] MEDS: HYDROcodone-ACET 5/325MG TAB PO PRN (20:14)
[2018-05-31 21:57] VITALS: BP 147/57
--- NOTE | 2018-05-31 22:30 | NUR ---
Pt sleeping and will try to give 2200 meds when she wakes up.
--- NOTE | 2018-06-01 00:30 | NUR ---
Attempted to give 2200 meds when pt awoke for accu check and pt spit meds out and started yelling. Pt refuses PO meds at this time. After several attempts.
[2018-06-01] MEDS: InsuLIN REG 1unit/0.01ml Soln (100units/ml) SC SCH ×5 (01:01→23:00)
[2018-06-01] MEDS: ACCU-CHEK COMFORT CURVE STRIP VI SCH ×5 (01:02→23:01)
[2018-06-01 06:01] VITALS: BP 168/77
[2018-06-01] MEDS: FUROSEMIDE 20 MG/2 ML VIAL IV SCH ×2 (06:23→18:03)
[2018-06-01] MEDS: methylPREDNISolone SOD SUCC 125 MG/2 ML VL IV SCH ×3 (06:24→22:59)
[2018-06-01] MEDS: LEVOTHYROXINE SODIUM 100 MCG TAB PO SCH (06:25)
[2018-06-01 06:46] LABS: Basophils # (auto) 0 uL; Eosinophils # (auto) 0 uL; Hematocrit 50.2 % (36.0-46.0); Hemoglobin 16.9 g/dL (12.2-16.2); Lymphocytes # (auto) 0.5 uL; Lymphocytes % (auto) 10.5 % (10.0-50.0); Mean Corpuscular Hemoglobin 30.7 pg (28.0-32.0); Mean Corpuscular Hgb Conc. 33.7 g/dL (32.0-36.0); Mean Corpuscular Volume 91.3 fL (80.0-100.0); Monocytes # (auto) 0.3 uL; Monocytes % (auto) 5.7 % (0.0-12.0); Neutrophils # (auto) 4.2 uL; Neutrophils % (auto) 83.8 % (37.0-80.0); Nucleated Red Blood Cells % 0.2 %; Platelet Count (auto) 209 10^3/uL (140-450); Red Cell Distribution Width 14.6 % (11.8-14.3)
[2018-06-01] MEDS: ALBUTEROL SULF 2.5 MG/0.5ML(0.5%) NEB SOLN NEB SCH ×3 (06:54→19:30)
[2018-06-01] MEDS: IPRATROPIUM BROM 0.5 MG/2.5ML INH SOL NEB SCH ×3 (06:55→19:30)
[2018-06-01 07:07] LABS: Calcium 9.1 mg/dL (8.5-10.1)
[2018-06-01 07:10] LABS: BUN/Creatinine Ratio 37.6
[2018-06-01 07:18] LABS: Potassium 2.9 mmol/L (3.5-5.1)
--- NOTE | 2018-06-01 07:24 | NUR ---
Critical lab values called by collaborating supervising physician for Potassium 2.9; BUN 47; Co2 42. This was called in during report and endorsed care of pt and critical labs values to Chantelle JOSEPH.
[2018-06-01 09:00] VITALS: BP 149/77
[2018-06-01] MEDS ORDERED: POTASSIUM CHL 20 Meq TABLET PO ONE (09:15)
[2018-06-01] MEDS ORDERED: POTASSIUM CHL 20MEQ/100ML 100 ML IV ONE (09:15)
[2018-06-01] MEDS: cefTRIAXone 1GM/50ML D5W 50 ML IV SCH (10:11)
[2018-06-01] MEDS: AZITHROMYCIN 500MG/ 250ML 250 ML IV SCH (10:11)
--- NOTE | 2018-06-01 12:18 | NUR ---
PT Patient asleep during morning PT visit. RN stated that pt was combative this morning and did not have enough sleep last night. Addendum: 06/01/18 at 1219 by SAMANTHA RICHARDS PTT Amended: Links added.
[2018-06-01 13:00] VITALS: BP 116/59
[2018-06-01] MEDS ORDERED: HALOPERIDOL LACTATE 5 MG/ML INJ VIAL IM PRN (13:00)
[2018-06-01] MEDS: DABIGATRAN 75 MG CAP PO SCH ×2 (14:45→23:00)
[2018-06-01] MEDS: PANTOPRAZOLE 40 MG TAB PO SCH (14:45)
[2018-06-01] MEDS: METOPROLOL SUCCINATE XL 50 MG TAB PO SCH (14:46)
--- NOTE | 2018-06-01 15:00 | NUR ---
Dr. Castro spoke with the patient's daughter Leno.
[2018-06-01 17:00] VITALS: BP 123/68
--- NOTE | 2018-06-01 17:10 | NUR ---
Dr. Minaya at bedside The physician was at bedside. The physician ordered Colace PO and a Urology Consult for urinary incontinence. Will follow through and continue to monitor.
[2018-06-01 17:31] LABS: BUN/Creatinine Ratio 37.5; Calcium 9.1 mg/dL (8.5-10.1); Potassium 3.6 mmol/L (3.5-5.1)
--- NOTE | 2018-06-01 18:46 | NUR ---
UROLOGY CONSULT/DR. Akash DELGADO AT BEDSIDE DR. DELGADO ORDERED A URINE CULTURE AND WANTS TO SEE THE PATIENT WITH FAMILY FOR FOLLOW-UP IN CLINIC. WILL ENDORSE TO DAY SHIFT RN AND INFORM DR. TAVAREZ.
[2018-06-01 21:43] VITALS: BP 155/68
[2018-06-01] MEDS: DOCUSATE SOD 100 MG CAP PO SCH (22:59)
--- NOTE | 2018-06-01 23:10 | NUR ---
RAD at bedside for Kidney US.
[2018-06-02 04:59] VITALS: BP 160/83
[2018-06-02] MEDS: ALBUTEROL SULF 2.5 MG/0.5ML(0.5%) NEB SOLN NEB SCH ×3 (06:30→19:12)
[2018-06-02] MEDS: IPRATROPIUM BROM 0.5 MG/2.5ML INH SOL NEB SCH ×3 (06:30→19:12)
[2018-06-02] MEDS: FUROSEMIDE 20 MG/2 ML VIAL IV SCH ×2 (06:35→18:00)
[2018-06-02] MEDS: methylPREDNISolone SOD SUCC 125 MG/2 ML VL IV SCH (06:36)
[2018-06-02] MEDS: InsuLIN REG 1unit/0.01ml Soln (100units/ml) SC SCH ×3 (06:37→22:38)
[2018-06-02] MEDS: ACCU-CHEK COMFORT CURVE STRIP VI SCH ×4 (06:37→22:39)
[2018-06-02] MEDS: LEVOTHYROXINE SODIUM 100 MCG TAB PO SCH (06:38)
--- NOTE | 2018-06-02 07:40 | NUR ---
Opening Shift Note Assumed care of patient, awake, alert and orientedx2. No S/S of distress/SOB or pain. Bed at lowest position and call light within reach. Instructed on POC and to call for assistance PRN, will continue to monitor for changes Q1hr and PRN. Sitter at bedside.
[2018-06-02 08:00] VITALS: BP 142/85
[2018-06-02] MEDS: DOCUSATE SOD 100 MG CAP PO SCH ×2 (09:49→22:38)
[2018-06-02] MEDS: AZITHROMYCIN 500MG/ 250ML 250 ML IV SCH (09:49)
[2018-06-02] MEDS: cefTRIAXone 1GM/50ML D5W 50 ML IV SCH (09:49)
[2018-06-02] MEDS: PANTOPRAZOLE 40 MG TAB PO SCH (09:49)
[2018-06-02] MEDS: DABIGATRAN 75 MG CAP PO SCH ×2 (09:50→22:38)
[2018-06-02] MEDS: METOPROLOL SUCCINATE XL 50 MG TAB PO SCH (09:51)
--- NOTE | 2018-06-02 11:55 | NUR ---
Called and left a message for Dr. Minaya regarding patients blood sugar of 418, per protocol.
--- NOTE | 2018-06-02 12:09 | NUR ---
Dr. Minaya at bedside .
--- NOTE | 2018-06-02 12:10 | NUR ---
Dr. Minaya placed orders for 20 units Lantus, orders read back and verified.
[2018-06-02] MEDS ORDERED: INSULIN LANTUS (GLARGINE) 1 /0.01ml (100units/ml) SC ONE ×2 (12:15→19:00)
--- NOTE | 2018-06-02 13:00 | NUR ---
Patient pulled out IV per SUPERVISOR SPINNING. SUPERVISOR SPINNING was blowing her nose in the bathroom when patient pulled out IV. Applied pressure with a gauze.Wrapped in Coban. No swelling/redness at IV site. No c/o pain. Patient tolerated well . Will continue to monitor.
--- NOTE | 2018-06-02 15:40 | NUR ---
Attempted IV Insertion on Right hand once. Attempted IV insertion on Left FA once. Patient tolerated well.
--- NOTE | 2018-06-02 16:51 | NUR ---
Called Dr. Minaya regarding patients port-a-cath. Awaiting call back.
--- NOTE | 2018-06-02 18:30 | NUR ---
Called Dr. Minaya to inform him that patient's blood glucose is 416, per hospital protocol. Addendum: 06/02/18 at [address] RN orders received for 20 units Lantus, orders read back and verified.
--- NOTE | 2018-06-02 18:54 | NUR ---
END OF SHIFT NOTE Patient sitting up in the chair having dinner, on 1L NC, no s/s of distress/SOB noted/stated. Sitter at bedside. Will endorse care to NOC RN.
--- NOTE | 2018-06-02 19:30 | NUR ---
Opening shift Note Pt sitting up in bedside chair having dinner. Pt is in a pleasant mood-smiling and speaking Kinyarwanda with staff tonight. POC discussed with pt and pt verbalizes understanding. Sitter is at bedside for pt safety.
[2018-06-02 22:01] VITALS: BP 115/63
[2018-06-02] MEDS: TEMAZEPAM 15 MG CAP PO PRN (22:39)
[2018-06-03] VITALS (7 sets, daily range): BP systolic 106–160; BP diastolic 52–74
--- NOTE | 2018-06-03 00:30 | NUR ---
Endorsed care of pt to Mikhail JOSEPH at this time.
--- NOTE | 2018-06-03 00:55 | NUR ---
RECEIVED PATIENT LYING IN BED, ASLEEP. NO S/S OF RESPIRATORY DISTRESS. WILL CONTINUE TO MONITOR
[2018-06-03] MEDS: FUROSEMIDE 20 MG/2 ML VIAL IV SCH ×2 (05:46→17:14)
[2018-06-03] MEDS: InsuLIN REG 1unit/0.01ml Soln (100units/ml) SC SCH ×4 (05:47→17:14)
[2018-06-03] MEDS: ACCU-CHEK COMFORT CURVE STRIP VI SCH ×3 (05:47→17:14)
[2018-06-03] MEDS: LEVOTHYROXINE SODIUM 100 MCG TAB PO SCH (06:31)
[2018-06-03] MEDS: ALBUTEROL SULF 2.5 MG/0.5ML(0.5%) NEB SOLN NEB SCH ×3 (06:37→19:30)
[2018-06-03] MEDS: IPRATROPIUM BROM 0.5 MG/2.5ML INH SOL NEB SCH ×3 (06:37→19:30)
--- NOTE | 2018-06-03 07:21 | NUR ---
CARE ENDORSED TO AM SHIFT RN
--- NOTE | 2018-06-03 07:44 | NUR ---
Opening Shift Note Assumed care of patient, comfortably sleeping , on 2 L NC, No S/S of distress/SOB or pain. Bed at lowest position and call light within reach Will continue to monitor for changes Q1hr and PRN. Sitter at bedside.
[2018-06-03] MEDS: cefTRIAXone 1GM/50ML D5W 50 ML IV SCH (08:59)
[2018-06-03] MEDS: AZITHROMYCIN 500MG/ 250ML 250 ML IV SCH (09:54)
[2018-06-03] MEDS: methylPREDNISolone SOD SUCC 125 MG/2 ML VL IV SCH (09:55)
[2018-06-03] MEDS: PANTOPRAZOLE 40 MG TAB PO SCH (09:55)
[2018-06-03] MEDS: DABIGATRAN 75 MG CAP PO SCH ×2 (09:55→21:54)
[2018-06-03] MEDS: METOPROLOL SUCCINATE XL 50 MG TAB PO SCH (09:56)
[2018-06-03] MEDS: DOCUSATE SOD 100 MG CAP PO SCH ×2 (10:05→21:53)
--- NOTE | 2018-06-03 17:17 | NUR ---
Patient's blood sugar 497,Dr. Minaya notified. Awaiting call back
--- NOTE | 2018-06-03 17:30 | NUR ---
Dr. Minaya ordered 20 Units Lantus SubQ, orders read back and verified.
[2018-06-03] MEDS ORDERED: INSULIN LANTUS (GLARGINE) 1 /0.01ml (100units/ml) SC ONE (18:15)
--- NOTE | 2018-06-04 | NUR ---
CRITICAL BLOOD SUGAR POC GLUCOSE REPEATED X2 FIRST READING AT [id number] 418 REPEAT VALUE 414 15U REGULAR INSULIN GIVEN DR. TAVAREZ NOTIFIED OF CRITICAL BLOOD SUGAR PER PROTOCOL Addendum: 06/04/18 at 0655 by Ilana Montilla RN [id number] NEW ORDERS RECEIVED FROM , 10U EDITH IN X ONE.
[2018-06-04] MEDS: ACCU-CHEK COMFORT CURVE STRIP VI SCH ×4 (00:03→16:54)
[2018-06-04] MEDS: InsuLIN REG 1unit/0.01ml Soln (100units/ml) SC SCH ×4 (00:14→17:45)
[2018-06-04 05:03] VITALS: BP 125/64
[2018-06-04] MEDS ORDERED: INSULIN LANTUS (GLARGINE) 1 /0.01ml (100units/ml) SC ONE (06:15)
[2018-06-04] MEDS: FUROSEMIDE 20 MG/2 ML VIAL IV SCH ×2 (06:16→17:45)
[2018-06-04] MEDS: LEVOTHYROXINE SODIUM 100 MCG TAB PO SCH (06:16)
[2018-06-04] MEDS: IPRATROPIUM BROM 0.5 MG/2.5ML INH SOL NEB SCH ×3 (06:32→19:23)
[2018-06-04] MEDS: ALBUTEROL SULF 2.5 MG/0.5ML(0.5%) NEB SOLN NEB SCH ×3 (06:32→19:23)
[2018-06-04] MEDS: methylPREDNISolone SOD SUCC 125 MG/2 ML VL IV SCH (09:04)
[2018-06-04] MEDS: cefTRIAXone 1GM/50ML D5W 50 ML IV SCH (09:04)
[2018-06-04] MEDS: DABIGATRAN 75 MG CAP PO SCH ×2 (09:04→22:02)
[2018-06-04] MEDS: PANTOPRAZOLE 40 MG TAB PO SCH (09:05)
[2018-06-04] MEDS: METOPROLOL SUCCINATE XL 50 MG TAB PO SCH (09:05)
[2018-06-04 09:08] VITALS: BP 116/74
[2018-06-04] MEDS: DOCUSATE SOD 100 MG CAP PO SCH ×2 (10:00→22:02)
[2018-06-04] MEDS: AZITHROMYCIN 500MG/ 250ML 250 ML IV SCH (10:16)
[2018-06-04] MEDS: HYDROcodone-ACET 5/325MG TAB PO PRN (11:01)
[2018-06-04 12:47] VITALS: BP 155/69
[2018-06-04] MEDS ORDERED: hydrALAZINE HCL 20 MG/ML VL IV SCH (18:00)
[2018-06-04 18:42] VITALS: BP 147/70
--- NOTE | 2018-06-04 19:30 | NUR ---
Opening Shift Note Received report from Muna JOSEPH. Assumed care of patient, awake and alert, sitter at bedside for safety. No S/S of distress/SOB or pain. Instructed on POC and to call for assist PRN. Fall precaution measures in place, will continue to monitor for changes Q1hr and PRN.
[2018-06-04 21:44] VITALS: BP 116/63
[2018-06-05] MEDS: ACCU-CHEK COMFORT CURVE STRIP VI SCH ×4 (00:06→17:12)
[2018-06-05] MEDS: InsuLIN REG 1unit/0.01ml Soln (100units/ml) SC SCH ×4 (00:07→17:36)
--- NOTE | 2018-06-05 01:35 | NUR ---
Patient resting comfortably, no signs of sob/distress, sitter at bedside.
[2018-06-05 05:34] VITALS: BP 122/65
[2018-06-05] MEDS: FUROSEMIDE 20 MG/2 ML VIAL IV SCH ×2 (06:13→17:36)
[2018-06-05] MEDS: LEVOTHYROXINE SODIUM 100 MCG TAB PO SCH (06:14)
[2018-06-05] MEDS: IPRATROPIUM BROM 0.5 MG/2.5ML INH SOL NEB SCH ×3 (06:26→19:00)
[2018-06-05] MEDS: ALBUTEROL SULF 2.5 MG/0.5ML(0.5%) NEB SOLN NEB SCH ×3 (06:26→19:00)
--- NOTE | 2018-06-05 07:15 | NUR ---
Care endorsed to Muna JOSEPH.
[2018-06-05 08:48] VITALS: BP 126/62
[2018-06-05 09:17] LABS: Basophils # (auto) 0 uL; Basophils % (auto) 0.3 % (0.0-2.0); Eosinophils # (auto) 0 uL; Eosinophils % (auto) 0.3 % (0.0-7.0); Hematocrit 49.1 % (36.0-46.0); Hemoglobin 16.7 g/dL (12.2-16.2); Lymphocytes # (auto) 0.8 uL; Lymphocytes % (auto) 8.2 % (10.0-50.0); Mean Corpuscular Hemoglobin 30.9 pg (28.0-32.0); Mean Corpuscular Hgb Conc. 33.9 g/dL (32.0-36.0); Monocytes # (auto) 0.6 uL; Monocytes % (auto) 5.8 % (0.0-12.0); Neutrophils # (auto) 8.8 uL; Neutrophils % (auto) 85.4 % (37.0-80.0); Nucleated Red Blood Cells % 0.1 %; Platelet Count (auto) 188 10^3/uL (140-450); Red Cell Distribution Width 14.1 % (11.8-14.3); White Blood Cell 10.3 10^3/uL (4.4-10.8)
[2018-06-05] MEDS: methylPREDNISolone SOD SUCC 125 MG/2 ML VL IV SCH (09:19)
[2018-06-05] MEDS: cefTRIAXone 1GM/50ML D5W 50 ML IV SCH (09:19)
[2018-06-05] MEDS: DOCUSATE SOD 100 MG CAP PO SCH ×2 (09:20→21:36)
[2018-06-05] MEDS: METOPROLOL SUCCINATE XL 50 MG TAB PO SCH (09:20)
[2018-06-05] MEDS: PANTOPRAZOLE 40 MG TAB PO SCH (09:20)
[2018-06-05] MEDS: DABIGATRAN 75 MG CAP PO SCH ×2 (09:20→21:35)
[2018-06-05 09:36] LABS: Albumin 3.2 g/dL (3.4-5.0); Calcium 9.2 mg/dL (8.5-10.1); Potassium 3.7 mmol/L (3.5-5.1)
[2018-06-05 09:39] LABS: BUN/Creatinine Ratio 42.4; Bilirubin, Total 0.7 mg/dL (0.2-1.0)
[2018-06-05] MEDS: AZITHROMYCIN 500MG/ 250ML 250 ML IV SCH (10:10)
--- NOTE | 2018-06-05 12:32 | NUR ---
PT 1st AM visit, patient was sitting on the chair during morning PT visit. 2nd AM visit, patient was already in bed. Addendum: 06/05/18 at 1233 by SAMANTHA RICHARDS PTT Amended: Links added.
--- NOTE | 2018-06-05 14:41 | NUR ---
Nutrition Follow-up Notes Wt.: 102.6 kg as of yesterday. Pt's on oxygen via nasal cannula, confused, in isolation room, no immediate family member at bedside except for sitter during rounds this morning. Pt's currently on Consistent Carb, Cardiac: 2 gms Na, Low Chol, Low Fat diet with adequate PO intake aeb 80% ave. consumed meals in last 2.5 days. Est. Needs: 1550 kcal to 2000 kcal (15-20 kcal/kgBW), 55 gms to 66 gms pro (1.0-1.2 gms/kgIBW: 55 kg). Will continue to monitor pertinent labs and reassess nutrient need prn Labs: Gluc 243 H, Cl 87 L, CO2 49 H, BUN 64 H, Cr 1.51 H, Alb 3.2 L Skin: Donato scale 16, mod risk, pt's left right legs hyperpigmentation and edema per potato bucker. GI: Pt had 1 BM this morning per potato bucker. PES: Altered nutrition related lab values r/t current/chronic medical condition aeb hyperglycemia and elev. Vit B12, renal labs. Obesity r/t food intake more than body requirement aeb 187% IBW, BMI 38.8 kg/m2 and increased body adiposity Will continue to monitor PO intake, skin status, pertinent labs and weight trend. F/u in 3 to 5 days. Rec.: 1.) Continue close supervision and feeding assistance during meals. 2.) If pt's PO intake remains inadequate (<75%), consider Ensure Enlive 1 carton BID. 3.) Refer to CDE/RD for further nutrition education and weight monitoring upon discharged. 4.) Continue current plan of care.
--- NOTE | 2018-06-05 15:52 | NUR ---
PT Patient already sitting in the chair during afternoon PT visit. Addendum: 06/05/18 at 1553 by SAMANTHA RICHARDS PTT Amended: Links added.
[2018-06-05 17:00] VITALS: BP 134/72
[2018-06-05 23:28] VITALS: BP 133/72
[2018-06-06] MEDS: ACCU-CHEK COMFORT CURVE STRIP VI SCH ×4 (00:09→18:23)
[2018-06-06] MEDS: InsuLIN REG 1unit/0.01ml Soln (100units/ml) SC SCH ×4 (00:10→18:00)
[2018-06-06 05:00] VITALS: BP 133/73
[2018-06-06] MEDS: LEVOTHYROXINE SODIUM 100 MCG TAB PO SCH (06:21)
[2018-06-06] MEDS: FUROSEMIDE 20 MG/2 ML VIAL IV SCH ×2 (06:22→18:00)
[2018-06-06] MEDS: ALBUTEROL SULF 2.5 MG/0.5ML(0.5%) NEB SOLN NEB SCH ×3 (06:32→19:58)
[2018-06-06] MEDS: IPRATROPIUM BROM 0.5 MG/2.5ML INH SOL NEB SCH ×3 (06:32→19:58)
[2018-06-06 08:24] VITALS: BP 133/73
[2018-06-06 08:50] VITALS: BP 106/59
[2018-06-06] MEDS: METOPROLOL SUCCINATE XL 50 MG TAB PO SCH (08:58)
[2018-06-06] MEDS: methylPREDNISolone SOD SUCC 125 MG/2 ML VL IV SCH (08:58)
[2018-06-06] MEDS: DABIGATRAN 75 MG CAP PO SCH (08:58)
[2018-06-06] MEDS: cefTRIAXone 1GM/50ML D5W 50 ML IV SCH (08:58)
[2018-06-06] MEDS: DOCUSATE SOD 100 MG CAP PO SCH (08:59)
[2018-06-06] MEDS: PANTOPRAZOLE 40 MG TAB PO SCH (08:59)
[2018-06-06] MEDS: AZITHROMYCIN 500MG/ 250ML 250 ML IV SCH (10:00)
--- NOTE | 2018-06-06 12:33 | NUR ---
Respiratory note: PT REFUSING SCHEDULED MED NEB TX, STATES SHE IS FINE RIGHT NOW. DENIES SOB OR DIFF BREATHING, NO DISTRESS NOTED. RN ALLI NOTIFIED OF REFUSAL. HR 62 RR 18 SPO2 99% ON 2L N/C BREATH SOUNDS ARE DIMINISHED T/O.
[2018-06-06 12:42] VITALS: BP 140/76
--- NOTE | 2018-06-06 15:50 | NUR ---
IM Pt signed IM, copy placed in chart
[2018-06-06 16:48] VITALS: BP 127/72
--- NOTE | 2018-06-06 19:45 | NUR ---
Received report from arleen Toro RN. Patient is sitting in the chair, on 2lnc saturating at 96%. No distress noted. Sitter at bedside. Instructed patient that her transport is coming at 2100. Patient is confused, but answers questions appropriately and verbalized understading.
--- NOTE | 2018-06-06 20:01 | NUR ---
CALLED REPORT TO MISAEL AT [facility] [phone]. PT TO BE DISCHARGED THERE, AMMONIA TECHNICIAN TIME AT 2100. CARE ENDORSED TO JOSE DELICATESSEN SLICER NURSE.
--- NOTE | 2018-06-06 20:20 | NUR ---
Leno Seals (daughter) notified of patient's transfer to SNF.
--- NOTE | 2018-06-06 21:00 | NUR ---
PORT-A-CATH HEPLOCK, AND DRESSED WITH GAUGE AND TEGADERM, PATIENT TOLERATED WELL.
--- NOTE | 2018-06-06 21:00 | NUR ---
GU CATHETER REMOVED, PATIENT TOLERATED WELL. NO DISTRESS NOTED
--- NOTE | 2018-06-06 21:20 | NUR ---
[facility] arrived. Discharge instructions given to Mary. Encourage to follow up with PMD as instructed. All questions and concerns addressed. Medication reconciliation form completed and copy given to evette Hernandez. Port-a-cath accessed needle removed, pressure dressing applied, thompson catheter removed. Telemetry unit returned to ICU. Patient taken by fire [facility] transport with all personal belongings. No distress noted at time of departure.
--- NOTE | 2018-06-06 21:20 | NUR ---
Family notified of patient's transfer.
== END 2018-06-06 23:54 | DRG 291 ==
LOC: EDBD 20:05 → EDUNIT# 20:05 → ER 20:10 → TELE 05-25 02:31 → TELE-EAST 05-25 04:01
PROVIDERS: ADMIT Nurse Practitioner; ATTEND Internal Medicine
PROC: 5A09357 Assistance with Respiratory Ventilation, Less than 24 Consecutive Hours, Continuous Positive Airway Pressure (ICD-10-PCS; principal; 2018-05-24)
PROC: 5A09357 Assistance with Respiratory Ventilation, Less than 24 Consecutive Hours, Continuous Positive Airway Pressure (ICD-10-PCS; 2018-05-25)
PROC: 5A09357 Assistance with Respiratory Ventilation, Less than 24 Consecutive Hours, Continuous Positive Airway Pressure (ICD-10-PCS; 2018-05-26)
PROC: 5A09357 Assistance with Respiratory Ventilation, Less than 24 Consecutive Hours, Continuous Positive Airway Pressure (ICD-10-PCS; 2018-05-27)
PROC: 5A09357 Assistance with Respiratory Ventilation, Less than 24 Consecutive Hours, Continuous Positive Airway Pressure (ICD-10-PCS; 2018-05-28)
PROC: 5A09357 Assistance with Respiratory Ventilation, Less than 24 Consecutive Hours, Continuous Positive Airway Pressure (ICD-10-PCS; 2018-05-29)
DX: I13.0 Hypertensive heart and chronic kidney disease with heart failure and stage 1 through stage 4 chronic kidney disease, or unspecified chronic kidney disease (principal); G93.41 Metabolic encephalopathy; I50.33 Acute on chronic diastolic (congestive) heart failure; J96.22 Acute and chronic respiratory failure with hypercapnia; J96.21 Acute and chronic respiratory failure with hypoxia; J10.00 Influenza due to other identified influenza virus with unspecified type of pneumonia; J44.1 Chronic obstructive pulmonary disease with (acute) exacerbation; E87.2 Acidosis; J44.0 Chronic obstructive pulmonary disease with (acute) lower respiratory infection; N39.0 Urinary tract infection, site not specified; E66.2 Morbid (severe) obesity with alveolar hypoventilation; N18.3 Chronic kidney disease, stage 3 (moderate); F02.80 Dementia in other diseases classified elsewhere, unspecified severity, without behavioral disturbance, psychotic disturbance, mood disturbance, and anxiety; G30.9 Alzheimer's disease, unspecified; R91.1 Solitary pulmonary nodule; E11.40 Type 2 diabetes mellitus with diabetic neuropathy, unspecified; F17.210 Nicotine dependence, cigarettes, uncomplicated; E87.6 Hypokalemia; E11.22 Type 2 diabetes mellitus with diabetic chronic kidney disease; F41.9 Anxiety disorder, unspecified; G40.909 Epilepsy, unspecified, not intractable, without status epilepticus; I25.10 Atherosclerotic heart disease of native coronary artery without angina pectoris; Z66 Do not resuscitate; Z53.20 Procedure and treatment not carried out because of patient's decision for unspecified reasons; Z91.19 Patient's noncompliance with other medical treatment and regimen; Z95.0 Presence of cardiac pacemaker; R32 Unspecified urinary incontinence; Z68.36 Body mass index [BMI] 36.0-36.9, adult
CPT/HCPCS: 36415; 36600; 51702; 70450; 71045; 71250; 76775; 80048; 80053; 81001; 82607; 82746; 82805; 82962; 83036; 83605; 83880; 84443; 84484; 85025; 85610; 85730; 87040; 87081; 87804; 93005; 93306; 94640; 94660; 94761; 95819; 96365; 96375; 97110; 97116; 97163; 97530; A6257; G0378; G9035; J0696; J1642; J1815; J2405; J3480

== ENCOUNTER 2018-06-20 09:21 | Inpatient (IN) | payer MEDICARE, MEDICAID | END 2018-06-29 13:50 | LOC: ER 09:21 → TELE 18:02 → TELE-CENTR 22:00 | DX: G93.41 Metabolic encephalopathy (principal); G93.1 Anoxic brain damage, not elsewhere classified; J96.10 Chronic respiratory failure, unspecified whether with hypoxia or hypercapnia; I50.32 Chronic diastolic (congestive) heart failure; I13.0 Hypertensive heart and chronic kidney disease with heart failure and stage 1 through stage 4 chronic kidney disease, or unspecified chronic kidney disease; E66.01 Morbid (severe) obesity due to excess calories; E87.6 Hypokalemia; J44.9 Chronic obstructive pulmonary disease, unspecified; G30.9 Alzheimer's disease, unspecified; E11.40 Type 2 diabetes mellitus with diabetic neuropathy, unspecified ==